=== PATIENT | female | born 1930 | race Caucasian/White ===

== ENCOUNTER 2017-09-05 19:48 | Emergency (ER) | payer MEDICARE, BC ==
[2017-09-05 19:55] VITALS: BP 132/49
--- NOTE | 2017-09-05 20:02 | UC ---
Lower Extremity/Ankle HPI - HPI Summary HPI Summary: fell on last stair on deck at 4 pm today-pain left ankle hurts to stand - History of Current Complaint Chief Complaint: UCLowerExtremity Stated Complaint: ANKLE INJURY FROM FALL Time Seen by Provider: 09/05/17 19:55 Hx Obtained From: Patient ?: No Onset/Duration: Sudden Onset, Still Present Severity Initially: Moderate Severity Currently: Moderate Aggravating Factor(s): Standing, Ambulation Alleviating Factor(s): Rest, Elevation, Ice, OTC Meds Able to Bear Weight: Yes - with pain - Allergies/Home Medications Allergies/Adverse Reactions: Allergies Allergy/AdvReac Type Severity Reaction Status Date / Time Sulfa Antibiotics Allergy Unknown not sure Verified 09/05/17 19:55 from when she was young Codeine Allergy Stomach Verified 09/05/17 19:55 Cramps Home Medications: Home Medications Nebivolol HCl [Bystolic] 1 tab PO DAILY 09/05/17 [History Confirmed 09/05/17] PMH/Surg Hx/FS Hx/Imm Hx Previously Healthy: No Endocrine History: Diabetes, Dyslipidemia Cardiovascular History: Hypertension - Surgical History Surgical History: Yes Surgery Procedure, Year, and Place: 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 2003 AORTIC ANEURSYM REPAIR, [facility];. 2009 LAPAROSCOPIC CHOLECYSTECTOMY, [place];. 1979 HYSTERECTOMY [facility] [place];. BILATERAL KNEE SURGERY [facility] [place] MANY YRS AGO;. CATARACTS [place];. EYE LID SURGERY, [facility];. LASIK EYE SURGERY 2013 [place];. 2013 LEFT CARPAL TUNNEL RELEASE, [facility] [place]; - Family History Known Family History: Positive: None, Hypertension - Social History Occupation: Retired Lives: Alone Alcohol Use: None Substance Use Type: None Smoking Status (MU): Never Smoked Tobacco Review of Systems Constitutional: Negative Skin: Negative Eyes: Negative ENT: Negative Respiratory: Negative Cardiovascular: Negative Gastrointestinal: Negative Genitourinary: Negative Motor: Negative Neurovascular: Negative Musculoskeletal: Arthralgia - lateral left ankle Neurological: Negative Psychological: Negative Is Patient Immunocompromised?: No All Other Systems Reviewed And Are Negative: Yes Physical Exam Triage Information Reviewed: Yes Appearance: Well-Nourished, Pain Distress - mild, Thin Vital Signs: Initial Vital Signs Temp 98.3 F 09/05/17 19:51 Pulse 82 09/05/17 19:51 Resp 18 09/05/17 19:51 BP 132/49 09/05/17 19:51 Pulse Ox 100 09/05/17 19:51 Vital Signs Reviewed: Yes Eye Exam: Normal Eyes: Positive: Conjunctiva Clear ENT Exam: Normal ENT: Positive: Normal ENT inspection, Hearing grossly normal. Negative: Nasal congestion, Nasal drainage, Trismus, Muffled/hoarse voice Dental Exam: Normal Neck exam: Normal Neck: Positive: Supple, Nontender Respiratory Exam: Normal Respiratory: Positive: Chest non-tender, No respiratory distress, No accessory muscle use Cardiovascular Exam: Normal Cardiovascular: Positive: RRR, Pulses Normal, Brisk Capillary Refill Musculoskeletal Exam: Other Musculoskeletal: Positive: Strength Limited @ - lateral left ankle, ROM Limited @ - left ankle lateral, Edema @ - lateral left ankle Neurological Exam: Normal Neurological: Positive: Alert Psychological Exam: Normal Skin Exam: Normal Diagnostics - Radiology No standard instances Xray Interpretation: Positive (See Comments) - soft tissue swelling Radiology Interpretation Completed By: ED Physician, Radiologist Lower Extremity Course/Dx - Course Course Of Treatment: cam boot, rice, ibuprofen, cane (pt refused walker), follow with Dr. Lambert - Differential Dx/Diagnosis Differential Diagnosis/HQI/PQRI: Contusion, Fracture (Closed), Sprain Provider Diagnoses: Left ankle sprain Discharge - Discharge Plan Condition: Stable Disposition: HOME Patient Education Materials: Ibuprofen (By mouth), Ankle Sprain (ED), RICE Therapy (ED) Referrals: Valentino Lambert MD [Medical Doctor] - 4 Days
--- NOTE | 2017-09-05 20:31 | RAD ---
INDICATION: Lateral ankle pain after a fall this afternoon COMPARISON: None. TECHNIQUE: 3 views of the left ankle were obtained. FINDINGS: There is mild soft tissue swelling overlying the fibular malleolus. The well corticated bones exhibit normal alignment. Joint spaces appear maintained. No fracture is seen. IMPRESSION: SOFT TISSUE SWELLING OVERLYING THE FIBULAR MALLEOLUS WITHOUT RADIOGRAPHICALLY APPARENT UNDERLYING FRACTURE OR DISLOCATION. If the patient's symptoms persist, follow-up imaging is recommended.
== END 2017-09-05 21:00 | disposition home or self-care (01) ==
LOC: UCEAST 19:48
DX: S93.402A Sprain of unspecified ligament of left ankle, initial encounter (principal); Z88.2 Allergy status to sulfonamides; E11.9 Type 2 diabetes mellitus without complications; E78.5 Hyperlipidemia, unspecified; I10 Essential (primary) hypertension; W10.9XXA Fall (on) (from) unspecified stairs and steps, initial encounter; Y92.9 Unspecified place or not applicable
CPT/HCPCS: 99212; G0463

== ENCOUNTER 2018-04-08 07:13 | Emergency (ER) | payer MEDICARE, BC ==
[2018-04-08 07:23] VITALS: BP 134/47
[2018-04-08] MEDS ORDERED: DOXYcycline CAP(*) 100 MG PO ONE (07:45)
--- NOTE | 2018-04-08 07:45 | UC ---
Cameron Abernathy Gabriel, scribed for Marina Barger MD on 04/08/18 at 0741 . Bite Injury/Animal HPI - HPI Summary HPI Summary: This patient is a 87 year old F presenting to [facility] with a chief complaint of a tick bite that she noticed this morning and states it was not there yesterday. Pt believes there is a tick in her glutes uziel but is unsure because she cannot see it. The patient rates the pain 0/10 in severity. mild itching. Pt states she is outside all the time. She has not attempted to remove the tick herself. No anticoagulaton. Patients medication reviewed this visit. - History of Current Complaint Chief Complaint: UCSkin Stated Complaint: TICK BITE Time Seen by Provider: 04/08/18 07:26 Hx Obtained From: Patient Severity Currently: Mild Severity Initially: Mild Pain Intensity: 0 Pain Scale Used: 0-10 Numeric Onset/Duration: Still Present Type of Bite: Wild Animal Has Animal Been Immunized?: N/A Character: Puncture Animal Available for Observation: Yes - Allergies/Home Medications Allergies/Adverse Reactions: Allergies Allergy/AdvReac Type Severity Reaction Status Date / Time codeine Allergy Stomach Verified 04/08/18 07:23 Cramps Sulfa (Sulfonamide Allergy Unknown Verified 04/08/18 07:23 Antibiotics) Reaction Details PMH/Surg Hx/FS Hx/Imm Hx Endocrine History: Diabetes Cardiovascular History: Cardiac Disease, Hypertension - Surgical History Surgical History: Yes Surgery Procedure, Year, and Place: 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;. 2003 AORTIC ANEURSYM REPAIR, [facility];. 2009 LAPAROSCOPIC CHOLECYSTECTOMY, [place];. 1979 HYSTERECTOMY [facility];. BILATERAL KNEE SURGERY [facility] MANY YRS AGO;. CATARACTS [place];. EYE LID SURGERY, [facility];. LASIK EYE SURGERY 2013 [place];. 2013 LEFT CARPAL TUNNEL RELEASE, [facility]; - Family History Known Family History: Positive: Hypertension, Diabetes - Social History Alcohol Use: None Substance Use Type: None Smoking Status (MU): Never Smoked Tobacco Review of Systems Skin: Other - redness and tick bite Musculoskeletal: Other: - LLE pain and itching All Other Systems Reviewed And Are Negative: Yes Physical Exam Triage Information Reviewed: Yes Appearance: Well-Appearing, No Pain Distress, Well-Nourished Vital Signs: Initial Vital Signs Temp 98.8 F 05/09/18 07:19 Pulse 77 04/08/18 07:19 Resp 18 04/08/18 07:19 BP 134/47 04/08/18 07:19 Pulse Ox 100 04/08/18 07:19 Eyes: Positive: Conjunctiva Clear ENT: Positive: Hearing grossly normal Neck: Positive: Supple Respiratory: Positive: No respiratory distress, No accessory muscle use Musculoskeletal Exam: Normal Musculoskeletal: Positive: Strength Intact Neurological Exam: Normal Neurological: Positive: Alert Psychological Exam: Normal Skin: Positive: Other - pt with 4mm tick inferior margin left gluteus. mod engorgement. Easily removed intact and alive with tick remover. no retained parts noted Pt tolerated well Bite Injury Course/Dx - Course Course Of Treatment: pt with moderately engoraged tick left inferior gluteus. removed intact and full. Doxy 200mg x 1 dose - Differential Dx/Diagnosis Provider Diagnoses: tick bite with engorgement Discharge - Sign-Out/Discharge Documenting (check all that apply): Discharge/Admit/Transfer - Discharge Plan Condition: Stable Disposition: HOME Patient Education Materials: Tick Bite (ED) Referrals: Mason Gomez MD [Primary Care Provider] - Additional Instructions: Keep area clean and dry You were given the one time treat for lyme disease prophylaxis today at urgent care Check yourself daily for ticks after you have been working in the [employer] Contact your doctor or return with questions or concerns - Billing Disposition and Condition Condition: STABLE Disposition: HOME The documentation as recorded by the Cameron schrader Gabriel accurately reflects the service I personally performed and the decisions made by , Marina Barger MD.
== END 2018-04-08 07:54 | disposition home or self-care (01) ==
LOC: UCEAST 07:13
DX: S30.860A Insect bite (nonvenomous) of lower back and pelvis, initial encounter (principal); W57.XXXA Bitten or stung by nonvenomous insect and other nonvenomous arthropods, initial encounter; Y93.9 Activity, unspecified; Y92.9 Unspecified place or not applicable; E11.9 Type 2 diabetes mellitus without complications; Z79.84 Long term (current) use of oral hypoglycemic drugs; I11.9 Hypertensive heart disease without heart failure; Z95.2 Presence of prosthetic heart valve; Z88.5 Allergy status to narcotic agent; Z88.2 Allergy status to sulfonamides
CPT/HCPCS: 99212; A9270-GY; G0463

== ENCOUNTER 2019-03-03 13:06 | Emergency (ER) | payer MEDICARE, BC ==
[2019-03-03 14:12] VITALS: BP 150/99
--- NOTE | 2019-03-03 15:00 | UC ---
General HPI - HPI Summary HPI Summary: 88-year-old woman comes in with a chief complaint of high blood pressure leg weakness spinning dizziness. Symptoms started last May 2018. More symptoms appeared. The fall 2017. Over this winter the patient was visiting family for 2 months in [place] and the leg weakness continued and decreased her ability to ambulate and get around. She recently a lot blood pressure monitor and has found that her blood pressure is high and she is worried that's causing the problems. No headache no focal weakness no numbness no chest pain. Occasionally she feels her heart beating strongly and racing. She is not feeling that now. She describes the dizziness as spinning. It's worse when she first gets up. - History of Current Complaint Chief Complaint: UCGeneralIllness Stated Complaint: HIGH BLOOD PRES Time Seen by Provider: 03/03/19 14:09 Pain Intensity: 0 - Allergy/Home Medications Allergies/Adverse Reactions: Allergies Allergy/AdvReac Type Severity Reaction Status Date / Time codeine Allergy Stomach Verified 03/03/19 13:24 Cramps Sulfa (Sulfonamide Allergy Unknown Verified 03/03/19 13:24 Antibiotics) Reaction Details Home Medications: Home Medications Hydrochlorothiazide TAB* [Hydrodiuril TAB*] 1 tab PO DAILY 03/03/19 [History Confirmed 03/03/19] Irbesartan [Avapro] 150 mg PO DAILY 03/03/19 [History Confirmed 03/03/19] PMH/Surg Hx/FS Hx/Imm Hx Previously Healthy: Yes - ORTHOSTASIS, Endocrine History: Diabetes Cardiovascular History: Hypertension Other Neurological History: VERTIGO - Surgical History Surgical History: Yes Surgery Procedure, Year, and Place: 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 2003 AORTIC ANEURSYM REPAIR, [facility];. 2009 LAPAROSCOPIC CHOLECYSTECTOMY, [place];. [place] [facility]. BILATERAL KNEE SURG[place] [facility] [place];. CATARACTS [place];. EYE LID SURGERY, [facility];. LASIK EYE SURGERY 2013 [place];. 2013 LEFT CARPAL [place] [facility]; - Family History Known Family History: Positive: None, Hypertension, Diabetes - Social History Alcohol Use: None Substance Use Type: None Smoking Status (MU): Never Smoked Tobacco Review of Systems All Other Systems Reviewed And Are Negative: Yes Constitutional: Positive: Other - SEE HPI Skin: Positive: Negative Eyes: Positive: Negative ENT: Positive: Negative Respiratory: Positive: Negative Cardiovascular: Positive: Other - SEE HPI Gastrointestinal: Positive: Negative Motor: Positive: Weakness Neurovascular: Positive: Negative Musculoskeletal: Positive: Negative Neurological: Positive: Weakness, Other - SEE HPI Psychological: Positive: Negative Is Patient Immunocompromised?: No Physical Exam Triage Information Reviewed: Yes Appearance: Well-Appearing, No Pain Distress, Well-Nourished Vital Signs: Initial Vital Signs Temp 98 F 03/03/19 13:19 Pulse 86 03/03/19 13:19 Resp 18 03/03/19 13:19 BP 174/69 03/03/19 13:19 Pulse Ox 100 03/03/19 13:19 Vital Signs Reviewed: Yes Eye Exam: Normal Eyes: Positive: Conjunctiva Clear ENT: Positive: Pharynx normal, TMs normal. Negative: Nasal drainage Neck exam: Normal Neck: Positive: Supple Respiratory: Positive: Lungs clear, Normal breath sounds, No respiratory distress Cardiovascular: Positive: RRR - 80BPM, Other: - VALVE CLICKING Musculoskeletal Exam: Normal Musculoskeletal: Positive: Strength Intact, ROM Intact, No Edema Neurological Exam: Normal Neurological: Positive: Alert, Muscle Tone Normal Psychological Exam: Normal Psychological: Positive: Normal Response To Family, Age Appropriate Behavior Skin Exam: Normal Diagnostics - EKG Cardiac Rate: Tachycardia - AT 1347 Cardiac Rhythm: Sinus: Normal Ectopy: PACs ST Segment: Normal Course/Dx - Course Course Of Treatment: I discussed the patient with her primary care doctor Dr. Gomez. 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 By history and examination I feel overall the patient's condition is getting gradually worse since last fall. No complaint of any chest pain or focal weakness or any of abrupt changes in her symptoms. Plan at this time is to continue her medications as directed. She will not start the hydrochlorothiazide which was just prescribed today. Dr. Gomez's office is going to call the patient to arrange a follow-up this week. We discussed if anything got worse or any questions or concerns the patient should go the emergency department. - Diagnoses Provider Diagnosis: Dizziness, Leg weakness, bilateral, Hypertension Discharge - Sign-Out/Discharge Documenting (check all that apply): Patient Departure All imaging exams completed and their final reports reviewed: No Studies - Discharge Plan Condition: Stable Disposition: HOME Patient Education Materials: Hypertension (ED), Dizziness (ED) Referrals: Mason Gomez MD [Primary Care Provider] - Additional Instructions: FOLLOW UP WITH YOUR DOCTOR THIS WEEK. GO TO THE EMERGENCY DEPARTMENT FOR ANY WORSENING OF YOUR CONDITION OR ANY QUESTIONS OR CONCERNS. - Billing Disposition and Condition Condition: STABLE Disposition: Home
== END 2019-03-03 15:05 | disposition home or self-care (01) ==
LOC: UCEAST 13:06
DX: R42 Dizziness and giddiness (principal); R53.1 Weakness; I10 Essential (primary) hypertension; E11.9 Type 2 diabetes mellitus without complications; R03.0 Elevated blood-pressure reading, without diagnosis of hypertension; Z88.2 Allergy status to sulfonamides; Z88.5 Allergy status to narcotic agent
CPT/HCPCS: 93005; 99211; G0463

== ENCOUNTER 2019-04-22 07:05 | Emergency (ER) | payer MEDICARE, BC ==
[2019-04-22 07:23] VITALS: BP 182/69
[2019-04-22] MEDS ORDERED: Amoxicillin/Clavulanate TAB* 875 MG PO ONE (08:05)
--- NOTE | 2019-04-22 08:05 | UC ---
Throat Pain/Nasal Dequan HPI - HPI Summary HPI Summary: 88-year-old woman comes in with a chief complaint of swelling underneath the right tongue. Started 4 days ago with a scratchy sore throat. Is gotten worse. Yesterday was quite a bit more swollen. It hurts to swallow. No shortness of breath. Back in 2016 she had something very similar and she remembers it to be a stone. No fevers or chills. - History of Current Complaint Chief Complaint: UCGeneralIllness Stated Complaint: EAR PAIN SWOLLEN GLAND Time Seen by Provider: 04/22/19 07:26 Pain Intensity: 10 - Allergies/Home Medications Allergies/Adverse Reactions: Allergies Allergy/AdvReac Type Severity Reaction Status Date / Time codeine Allergy Stomach Verified 04/22/19 07:13 Cramps Sulfa (Sulfonamide Allergy Unknown Verified 04/22/19 07:13 Antibiotics) Reaction Details PMH/Surg Hx/FS Hx/Imm Hx Previously Healthy: Yes Endocrine History: Diabetes Cardiovascular History: Hypertension - Surgical History Surgical History: Yes Surgery Procedure, Year, and Place: 2001 WITH AORTIC VALVE REPLACEMENT ([employer]; [place] for mri up to 3T), [facility];. 2003 AORTIC ANEURSYM REPAIR, [facility];. 2009 LAPAROSCOPIC CHOLECYSTECTOMY, [place];. [place] [facility]. BILATERAL K[place]EE [place] [facility] [place];. CATARACTS [place];. EYE LID SURGERY, [facility];. LASIK EYE SURGERY 2013 [place];. 2013 LEFT CARP[place] [facility]. chole[place] - Family History Known Family History: Positive: None, Hypertension, Diabetes - Social History Alcohol Use: None Substance Use Type: None Smoking Status (MU): Never Smoked Tobacco Review of Systems All Other Systems Reviewed And Are Negative: Yes Constitutional: Positive: Negative Skin: Positive: Negative Eyes: Positive: Negative ENT: Positive: Other - SEE HPI Respiratory: Positive: Negative Cardiovascular: Positive: Negative Gastrointestinal: Positive: Negative Motor: Positive: Negative Neurovascular: Positive: Negative Musculoskeletal: Positive: Negative Neurological: Positive: Negative Psychological: Positive: Negative Is Patient Immunocompromised?: No Physical Exam Triage Information Reviewed: Yes Appearance: Well-Appearing, No Pain Distress, Well-Nourished Vital Signs: Initial Vital Signs Temp 98.1 F 04/22/19 07:16 Pulse 72 04/22/19 07:16 Resp 20 04/22/19 07:16 BP 182/69 04/22/19 07:16 Pulse Ox 97 04/22/19 07:16 Vital Signs Reviewed: Yes Eye Exam: Normal Eyes: Positive: Conjunctiva Clear ENT: Positive: Pharynx normal, TMs normal, Uvula midline, Other - SWELLING FLOOR OF MOUTH UNDER RIGHT TONGUE. POSTERIOR PHARYNX OPEN AND SYMMETRIC. VOICE NORMAL.. Negative: Muffled voice, Hoarse voice Neck: Positive: Supple Respiratory: Positive: Lungs clear, Normal breath sounds, No respiratory distress Cardiovascular: Positive: RRR Musculoskeletal Exam: Normal Musculoskeletal: Positive: Strength Intact, ROM Intact Neurological Exam: Normal Neurological: Positive: Alert, Muscle Tone Normal Psychological Exam: Normal Psychological: Positive: Normal Response To Family, Age Appropriate Behavior Skin Exam: Normal Throat Pain/Nasal Course/Dx - Course Course Of Treatment: Patient's symptoms today are consistent with her prior diagnosis of right submandibular sialoadenitis and sialolithiasis. Starting the patient on Augmentin and we talked about using lemon drops and the plan is to have her follow-up with ENT today. I let her know if she had any difficulty with breathing swelling at worse she needed to go directly to the emergency department. - Differential Dx/Diagnosis Provider Diagnosis: Sialoadenitis of submandibular gland Discharge - Sign-Out/Discharge Documenting (check all that apply): Patient Departure All imaging exams completed and their final reports reviewed: No Studies - Discharge Plan Condition: Stable Disposition: HOME Prescriptions: Amoxicillin/Clavulanate TAB* [Augmentin TAB 875*] 875 mg PO BID #19 tab Patient Education Materials: Sialoadenitis (ED) Referrals: Mason Gomez MD [Primary Care Provider] - Kevin Kraft MD [Medical Doctor] - Additional Instructions: FOLLOW UP WITH ENT TODAY. GO TO THE EMERGENCY DEPARTMENT IF YOUR CONDITION WORSENS; DIFFICULTY SWALLOWING OR BREATHING OR ANY QUESTIONS OR CONCERNS. - Billing Disposition and Condition Condition: STABLE Disposition: Home
== END 2019-04-22 08:20 | disposition home or self-care (01) ==
LOC: UCEAST 07:05
DX: K11.20 Sialoadenitis, unspecified (principal); E11.9 Type 2 diabetes mellitus without complications; I10 Essential (primary) hypertension; Z95.2 Presence of prosthetic heart valve; Z88.5 Allergy status to narcotic agent; Z88.2 Allergy status to sulfonamides
CPT/HCPCS: 99212; A9270-GY; G0463

== ENCOUNTER 2019-12-02 07:04 | Emergency (ER) | payer MEDICARE, BC ==
--- OUTSIDE RECORDS SUMMARY | 2019-12-02 07:12 | XMS REPORT | Continuity of Care Document ---
:1930 External Reference #:[id number] Author Name Melquiades Mcgraw M.D., [facility] Address [address] [place] [address] Care Team Providers Name Role Phone Nora Carpenter MD - Care Team Information [employer] [phone] Ophthalmology Andreas Egan MD - Surgery Care Team Information [employer] Mason Gomez MD - Internal Care Team Information [employer] Medicine Problems Active Problems Provider Date Aortic valve disorder Melquiades Mcgraw M.D., FAC Onset: 09/11/2011 Aortic aneurysm Melquiades Mcgraw M.D., FACC Onset: 09/11/2011 Dizziness and giddiness Melquiades Mcgraw M.D., FACC Onset: 09/11/2011 Benign essential hypertension Melquiades Mcgraw M.D., FACC Onset: 2010 Paroxysmal supraventricular Melquiades Mcgraw M.D., FACC Onset: 09/11/2011 tachycardia Muscle, ligament and fascia Melquiades Mcgraw M.D., FACC Onset: 06/05/2012 disorders Constipation Andreas Egan M.D. Onset: 05/02/2014 Diverticulitis of colon Andreas Egan M.D. Onset: 05/02/2014 Skin sensation disturbance Andreas Egan M.D. Onset: 05/02/2014 Preoperative cardiovascular Melquiades Mcgraw M.D., [facility] Onset: 10/20/2014 examination Abnormal gait Melquiades Mcgraw M.D., [facility] Onset: 11/18/2019 Aneurysm of thoracic aorta Melquiades Mcgraw M.D., [facility] Onset: 11/18/2019 Heart valve replacement Melquiades Mcgraw M.D., [facility] Onset: 04/07/2018 Syncope and collapse Melquiades Mcgraw M.D., [facility] Onset: 10/03/2016 Essential hypertension Kirstin Ibarra, MSN, Onset: 09/12/2016 [employer] Social History Type Date Description Comments Sex Unknown Tobacco Use Start: Unknown Never Smoked Cigarettes ETOH Use Rarely consumes alcohol Tobacco Use Start: Unknown Patient has never smoked Recreational Drug Use Denies Drug Use Smoking Status Reviewed: 11/18/19 Patient has never smoked Exercise Type/Frequency Exercises regularly Allergies, Adverse Reactions, Alerts Active Allergies Reaction Severity Comments Date Sulfamethazine 04/13/2009 Medications Active Medications SIG Qnty Indications Ordering Provider Date Aspirin Ec 1 po qd Melquiades Mcgraw 81mg Tablets Cathi Weeks, [facility] DR Chase sliding scale Melquiades Mcgraw 100Unit/ML Cathi Weeks, [facility] Solution Multi-Vitamin 1 po qd Kirstin Ibarra Tablets Nick, SARINA, [employer] Calcium 1 po qd Unknown 600mg Tablets Metformin HCL 1 po bid Unknown 1000mg Tablets Novolog sliding scale Unknown 100Unit/ML Solution Losartan Potassium 1 by mouth every Unknown 100mg day Tablets Vitamin D3 1 by mouth every Unknown 1000Unit day Capsules Immunizations Description No Information Available Vital Signs Date Vital Result Comment 11/18/2019 9:02am BP Systolic Sitting Right Arm 140 mmHg BP Diastolic Sitting Right Arm 89 mmHg Heart Rate 104 /min Respiratory Rate 16 /min Height 62 inches 5'2" Weight 130.00 lb BMI (Body Mass Index) 23.8 kg/m2 BSA (Body Surface Area) 1.59 m2 Pinson body weight in kilograms 50 kg O2 % BldC Oximetry 97 % ra Ejection Fraction 65% 05/10/2019 2:40pm BP Systolic Sitting Left Arm 108 mmHg BP Diastolic Sitting Left Arm 70 mmHg Heart Rate 78 /min Respiratory Rate 17 /min Height 62.50 inches 5'2.50" Weight 124.00 lb BMI (Body Mass Index) 22.3 kg/m2 BSA (Body Surface Area) 1.57 m2 Pinson body weight in kilograms 51 kg O2 % BldC Oximetry 90 % Results Description No Information Available Procedures Description No Information Available Medical Devices Description No Information Available Encounters Type Date Location Provider Dx Diagnosis Office Visit 11/18/2019 Cardiology Office Melquiades Mcgraw I10 Essential ( primary) 8:40a Cathi Weeks, [facility] hypertension Z95.2 Presence of prosthetic heart valve I47.1 Supraventricular tachycardia I71.2 Thoracic aortic aneurysm, without rupture R26.81 Unsteadiness on feet Assessments Date Code Description Provider 11/18/2019 I10 Essential (primary) hypertension Melquiades Mcgraw M.D., [facility] 11/18/2019 Z95.2 Presence of prosthetic heart valve Melquiades Mcgraw M.D., [facility] 11/18/2019 I47.1 Supraventricular tachycardia Melquiades Mcgraw M.D., [facility] 11/18/2019 I71.2 Thoracic aortic aneurysm, without Melquiades Mcgraw M.D. , rupture [facility] 11/18/2019 R26.81 Unsteadiness on feet Melquiades Mcgraw M.D., [facility] 05/26/2019 R07.1 Chest pain on breathing Abhay Wesley M.D. 05/26/2019 I10 Essential (primary) hypertension Abhay Wesley M.D. 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 neuropathy, unspecified 2019 R07.1 Chest pain on breathing Melquiades Mcgraw M.D., [facility] 2019 R07.1 Chest pain on breathing Abhay Wesley M.D. 2019 Z95.2 Presence of prosthetic heart valve Melquiades Mcgraw M.D., [facility] 2019 I10 Essential (primary) hypertension Abhay Wesley M.D. 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 neuropathy, unspecified Plan of Treatment Future Appointment(s):05/24/2020 9:20 am - Kirstni Ibarra, MSN, [facility] [employer] at Cardiology [id number]/18/2019 - Melquiades Mcgraw M.D., FACCI10 Essential ( primary) hypertensionComments:Slightly elevated today. Normal at home. No [id number] Presence of prosthetic heart valveNew Orders:Echocardiogram, Ordered: 11/18/19Comments:Normal function in 2018. Will check an echo in 6 [id number] Supraventricular tachycardiaComments:No recurrence of palpitations.I71.2 Thoracic aortic aneurysm, without ruptureComments:No issues after TAARR26.81 Unsteadiness on feetComments:Strongly recommended PT and stationary bike for strength recoveryAllFollow up:Follow up visit in 6 months Functional Status Functional Condition Comment Date Status Independent with all ADL's Active Glasses Active Mental Status Description No Information Available Referrals Description No Information Available
[2019-12-02 07:47] VITALS: BP 138/72
--- NOTE | 2019-12-02 07:52 | UC ---
General HPI - HPI Summary HPI Summary: Pleasant 89 yo female c/o R lateral neck swollen gland and R oroph swelling under tongue. Hurts to wear dentures. Hx enlarged salivary stone, last seen by ENT (Dr. Brown) several months ago for the same. Has had similar episode x2. No fever. no sob / cp. + couldn't swallow last night, took alleve which helped a little but not much. - History of Current Complaint Stated Complaint: SORE THROAT SWOLLEN GLAND Hx Obtained From: Patient, Family/Linoleum Tile Layer Pain Intensity: 10 - Allergy/Home Medications Allergies/Adverse Reactions: Allergies Allergy/AdvReac Type Severity Reaction Status Date / Time codeine Allergy Stomach Verified 12/02/19 07:18 Cramps Sulfa (Sulfonamide Allergy Unknown Verified 12/02/19 07:18 Antibiotics) Reaction Details Home Medications: Home Medications Cholecalciferol (Vitamin D3) [Vitamin D3] 1 tab PO DAILY 12/02/19 [History Confirmed 12/02/19] Dm/PE/Acetaminophen/Doxylamine [Vicks Dayquil/Nyquil Cold] 1 mis PO ONCE PRN 01/20 [History Confirmed 12/02/19] Ibuprofen TAB* [Motrin TAB* 600 MG] 400 mg PO Q8H PRN 12/02/19 [History Confirmed 12/02/19] Losartan Potassium 1 tab PO DAILY 12/02/19 [History Confirmed 12/02/19] Lutein 1 tab PO DAILY 12/02/19 [History Confirmed 12/02/19] PMH/Surg Hx/FS Hx/Imm Hx Previously Healthy: No - see hpi and below - Surgical History Surgical History: Yes Surgery Procedure, Year, and Place: 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 2009 LAPAROSCOPIC CHOLECYSTECTOMY, [place];. 1979 HYSTERECTOMY [facility];. BILATERAL KNEE SURGERY [facility] MANY YRS AGO;. CATARACTS [place];. EYE LID SURGERY, [facility];. LASIK EYE SURGERY 2013 [place];. 2013 LEFT CARPAL TUNNEL RELEASE, [facility];. cholecystectomy - Family History Known Family History: Positive: None, Hypertension, Diabetes - Social History Alcohol Use: None Substance Use Type: None Smoking Status (MU): Never Smoked Tobacco Review of Systems All Other Systems Reviewed And Are Negative: Yes Constitutional: Positive: Fatigue Skin: Positive: Negative Eyes: Positive: Negative ENT: Positive: Other - see hpi Respiratory: Positive: Negative Cardiovascular: Positive: Negative Gastrointestinal: Positive: Negative Genitourinary: Positive: Negative Motor: Positive: Negative Neurovascular: Positive: Negative Musculoskeletal: Positive: Negative Neurological: Positive: Negative Psychological: Positive: Negative Is Patient Immunocompromised?: No Physical Exam Triage Information Reviewed: Yes Appearance: Pain Distress, Thin Vital Signs: Initial Vital Signs Temp 99.1 F 12/02/19 07:12 Pulse 96 12/02/19 07:12 Resp 18 12/02/19 07:12 BP 177/70 12/02/19 07:12 Pulse Ox 95 12/02/19 07:12 Vital Signs Reviewed: Yes Eye Exam: Normal ENT: Positive: TM dull - dull au, Other - + lat adenopathy R submand swelling and s/sx c/w salivary stone no cellulitis. No ludwigs ang. trachea midline. Conversing ok. Neck exam: Other - see ent + arthritic changes Respiratory Exam: Normal Respiratory: Positive: Chest non-tender, Lungs clear, No respiratory distress Cardiovascular Exam: Normal Abdominal Exam: Normal Musculoskeletal Exam: Normal - generally nad Neurological Exam: Normal - grossly nonfocal Psychological: Positive: Normal Response To Family Skin Exam: Normal - no visible or reported rash Course/Dx - Course Course Of Treatment: I spoke with ENT offic 8:[address] Brown kindly will see Ms. Vazquez in the office today at 11am. Will start augmentin single dose here x 1, further rx per ENT. Thinks can swallow augmentin now. Seems pleased with plan. Questions as posed answered to the best of my ability. - Diagnoses Provider Diagnosis: Sialoadenitis Discharge ED - Sign-Out/Discharge Documenting (check all that apply): Patient Departure All imaging exams completed and their final reports reviewed: No Studies - Discharge Plan Condition: Stable Disposition: HOME Patient Education Materials: Sialoadenitis (ED) Referrals: Martin Brown MD [Medical Doctor] - Mason Gomez MD [Primary Care Provider] - Additional Instructions: Follow up with Dr. Brown today. You have an appointment at 11:00am. Please arrive 10-15 min early to check in. Please seek medical attention for worse or new problems in the meantime. You were given a dose of augmentin 857mg tablet here in the [facility]. Hydrate. - Billing Disposition and Condition Condition: STABLE Disposition: Home
--- NOTE | 2019-12-02 08:02 | UC ---
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 afebrile. she has been coughing, headache, ear pain. no difficulty breathing. 2015 - R submand salolithiasis C/o increasing R submandibular / salivary gland pain. Reports had difficulty swallowing last night, took ibuprofen in the middle of the night (over the counter x two tablets), better now. But still very painful. No fever / chills. Hx saledenitis in the past, has seen ENT for this, most recentlyl March 2019. No sob / cp. No rash. No palpitations. - History of Current Complaint Chief Complaint: UCRespiratory Stated Complaint: SORE THROAT SWOLLEN GLAND Time Seen by Provider: 12/02/19 07:48 Hx Obtained From: Patient, Family/Motor Vehicle Lecturer Pain Intensity: 10 - Allergy/Home Medications Allergies/Adverse Reactions: Allergies Allergy/AdvReac Type Severity Reaction Status Date / Time codeine Allergy Stomach Verified 12/02/19 07:18 Cramps Sulfa (Sulfonamide Allergy Unknown Verified 12/02/19 07:18 Antibiotics) Reaction Details Home Medications: Home Medications Cholecalciferol (Vitamin D3) [Vitamin D3] 1 tab PO DAILY 12/02/19 [History Confirmed 12/02/19] Dm/PE/Acetaminophen/Doxylamine [Vicks Dayquil/Nyquil Cold] 1 mis PO ONCE PRN 01/20 [History Confirmed 12/02/19] Ibuprofen TAB* [Motrin TAB* 600 MG] 400 mg PO Q8H PRN 12/02/19 [History Confirmed 12/02/19] Losartan Potassium 1 tab PO DAILY 12/02/19 [History Confirmed 12/02/19] Lutein 1 tab PO DAILY 12/02/19 [History Confirmed 12/02/19] PMH/Surg Hx/FS Hx/Imm Hx Previously Healthy: No - no acute issues other than above - Surgical History Surgical History: Yes Surgery Procedure, Year, and Place: 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 2009 LAPAROSCOPIC CHOLECYSTECTOMY, [place];. 1979 HYSTERECTOMY [facility];. BILATERAL KNEE SURGERY [facility] MANY YRS AGO;. CATARACTS [place];. EYE LID SURGERY, [place];. LASIK EYE SURGERY 2014 [place];. 2014 LEFT CARPAL TUNNEL RELEASE, [facility];. cholecystectomy - Family History Known Family History: Positive: None, Hypertension, Diabetes - Social History Alcohol Use: None Substance Use Type: None Smoking Status (MU): Never Smoked Tobacco Review of Systems All Other Systems Reviewed And Are Negative: Yes Constitutional: Positive: Negative - see hpi Skin: Positive: Negative Eyes: Positive: Negative ENT: Positive: Other - see hpi Respiratory: Positive: Negative Cardiovascular: Positive: Negative Gastrointestinal: Positive: Negative Genitourinary: Positive: Negative Motor: Positive: Negative Neurovascular: Positive: Negative Musculoskeletal: Positive: Negative Neurological: Positive: Negative Psychological: Positive: Negative Is Patient Immunocompromised?: No Physical Exam Triage Information Reviewed: Yes Appearance: Well-Nourished Vital Signs: Initial Vital Signs Temp 99.1 F 12/02/19 07:12 Pulse 96 12/02/19 07:12 Resp 18 12/02/19 07:12 BP 177/70 12/02/19 07:12 Pulse Ox 95 12/02/19 07:12 Vital Signs Reviewed: Yes Eye Exam: Normal - grossly nad ENT: Positive: Other - R + submand swelling. + s/sx c/w R salivary gland obstruc / inflammation. Not drooling. Trachea midline. Post pharynx benign. Uvula midline. Neck: Positive: Supple - supple for age Respiratory Exam: Normal Respiratory: Positive: Chest non-tender, Lungs clear, Normal breath sounds, No respiratory distress Cardiovascular Exam: Other - + murmur / click c/w prior cardiac hx, correlates with radial pulse Abdominal Exam: Normal Abdomen Description: Positive: Nontender Musculoskeletal Exam: Normal - moves x 4 exts Neurological Exam: Normal - grossly nonfocal Psychological Exam: Normal - nad Skin Exam: Normal - nondiaphoretic no visible or reported rash Course/Dx - Course Course Of Treatment: 11:10 - spoke with front desk agent at ENT office. Dr. Brown will see her today at 11:00am. Pt's son will take her there. Single dose augmentin given here in the [facility] prior to d/c. Questions as posed answered to the best of my ability. - Diagnoses Provider Diagnosis: Sialoadenitis Discharge ED - Sign-Out/Discharge Documenting (check all that apply): Patient Departure All imaging exams completed and their final reports reviewed: No Studies - Discharge Plan Condition: Stable Disposition: HOME Patient Education Materials: Sialoadenitis (ED) Referrals: Mason Gomez MD [Primary Care Provider] - Martin Brown MD [Medical Doctor] - Additional Instructions: Follow up with Dr. Brown today. You have an appointment at 11:00am. Please arrive 10-15 min early to check in. Please seek medical attention for worse or new problems in the meantime. You were given a dose of augmentin 857mg tablet here in the [facility]. Hydrate. - Billing Disposition and Condition Condition: STABLE Disposition: Home
[2019-12-02] MEDS ORDERED: Amoxicillin/Clavulanate TAB* 875 MG PO ONE (08:21)
== END 2019-12-02 08:38 | disposition home or self-care (01) ==
LOC: UCEAST 07:04
DX: Z88.5 Allergy status to narcotic agent (principal); Z88.2 Allergy status to sulfonamides; K11.20 Sialoadenitis, unspecified
CPT/HCPCS: 99212; A9270-GY; G0463

== ENCOUNTER 2019-12-10 08:54 | Day surgery (SDC) | payer MEDICARE, BC ==
[~2019-12-10 08:54] MED LIST: Buffered Lidocaine 1% SYRIN* 1 ML/SYRINGE INTRADERM ONE; Famotidine IV* 10 MG/ML 2 ML (20 mg) IV ONE; Lactated Ringers 1000 ML Bag* 1,000 ML IV SCH
[2019-12-10] MEDS ORDERED: Buffered Lidocaine 1% SYRIN* 1 ML/SYRINGE INTRADERM ONE (10:11)
[2019-12-10] MEDS ORDERED: Famotidine IV* 10 MG/ML 2 ML (20 mg) ONE (10:11)
[2019-12-10 11:19] LABS: BUN/Creatinine Ratio 25.7 (8-20); Calcium 9.3 mg/dL (8.6-10.3); EGFR African American 89.8 (>60); EGFR Non-African American 74.2 (>60)
[2019-12-10] MEDS ORDERED: Lidocaine 2% PF * 5 ML VIAL ONE (11:24)
[2019-12-10] MEDS ORDERED: Lidocaine 1% w EPI 1:100,000* MDV 20 ML VIAL ONE (11:24)
[2019-12-10] MEDS ORDERED: Ondansetron INJ* 2 MG/ML VIAL ONE (11:24)
[2019-12-10] MEDS ORDERED: Propofol* 10 MG/ML 20 ML BTL ONE (11:24)
[2019-12-10] MEDS ORDERED: Cisatracurium* 2 MG/ML MDV 5 ML ONE (11:24)
[2019-12-10] MEDS ORDERED: Midazolam* 1 MG/ML 5 ML VIAL (5 MG) ONE (11:24)
[2019-12-10] MEDS ORDERED: Dexamethasone IV* 4 MG/ML 1 ML (4 MG) ONE (11:24)
[2019-12-10] MEDS ORDERED: fentaNYL* 50 MCG/ML 2 ML VIAL (100 MCG VIAL) ONE ×4 (11:24→14:05)
[2019-12-10] MEDS ORDERED: EPHEDrine (Pressors)* 50 MG/ML VIAL ONE (11:56)
[2019-12-10] MEDS ORDERED: Metoprolol Tartrate IV* 1 MG/ML 5 ML VIAL ONE (12:22)
[2019-12-10] MEDS ORDERED: Ondansetron INJ* 2 MG/ML VIAL IV PRN (12:26)
[2019-12-10] MEDS ORDERED: Naloxone* 0.4 MG/ML 1 ML VIAL IV PRN (12:26)
[2019-12-10] MEDS ORDERED: Labetalol IV* 5 MG/ML 20 ML VIAL ONE (12:30)
[2019-12-10] MEDS: fentaNYL* 50 MCG/ML 2 ML VIAL (100 MCG VIAL) IV PRN ×4 (13:07→13:50)
[2019-12-10] MEDS ORDERED: Glycopyrrolate IV* 0.2 MG/ML 1 ML VIAL ONE (14:03)
[2019-12-10] MEDS ORDERED: Neostigmine Methylsulfate* 1 MG/ML 10 ML VIAL (1 mg/ml) ONE (14:03)
[2019-12-10] MEDS ORDERED: HYDROcodone/ACETAMIN 5-325 MG* 1 TAB ONE (14:06)
[2019-12-10 14:38] VITALS: BP 153/61
--- NOTE | 2019-12-10 20:17 | OP ---
DATE OF OPERATION: 12/10/19 - [facility] DATE OF : 34 SURGEON: Martin Brown MD ADVISER SALES: Dr. Mueller. ANESTHESIOLOGIST: Dr. Byrd. PRE-OP DIAGNOSIS: Recurrent sialadenitis with large sialolithiasis, right side. POST-OP DIAGNOSIS: Recurrent sialadenitis with large sialolithiasis, right side. OPERATIVE PROCEDURE: Excision of the right submandibular gland. BRIEF HISTORY: This 89-year-old female with recurring abscess in the right submandibular triangle, elected for surgical management after identifying a large stone in the submandibular gland. DESCRIPTION OF PROCEDURE: The patient was taken to the operating room. General anesthetic was given. The patient was intubated. The right neck was prepped and draped in usual fashion. A curvilinear incision was made approximately 2 cm below the angle of the mandible. Subplatysmal flaps were elevated. Submandibular gland was identified carefully. Blunt and sharp dissection was carried out. It was lifted off of the digastric along the floor of the mouth and traced towards the mylohyoid. Mylohyoid was elevated. The duct was followed. Large stone was noted in it, further passed the stone and then ligated the duct. Freed up the lingual nerve, attachments to the gland. Lingual artery and vein were identified and its attachments to the gland were removed and ligated. In this fashion, the gland was removed. Wound was then copiously irrigated, closed in a single layer. A small dressing was applied. The patient was awakened and sent to the recovery room in stable condition. Instrument and sponge counts were correct. Blood loss minimal. [id number]/[facility] #: [id number] [facility]
== END 2019-12-10 14:30 | disposition home or self-care (01) ==
LOC: OR 08:54
PROVIDERS: ATTEND Otolaryngology
DX: K11.23 Chronic sialoadenitis (principal); K11.5 Sialolithiasis; I10 Essential (primary) hypertension; I47.1 Supraventricular tachycardia; I65.23 Occlusion and stenosis of bilateral carotid arteries; E11.9 Type 2 diabetes mellitus without complications; Z79.4 Long term (current) use of insulin; Z79.84 Long term (current) use of oral hypoglycemic drugs; R13.10 Dysphagia, unspecified; R55 Syncope and collapse; E78.00 Pure hypercholesterolemia, unspecified
CPT/HCPCS: 36415; 80048; 88307; J1100; J2250; J2405; J2704; J2710; J3010; J3490